=== PATIENT | male | born 1940 | race African-American/Black ===

== ENCOUNTER 2021-02-25 16:51 | Inpatient (IN) | payer OTHER, BC ==
[2021-02-25 18:29] LABS: BASO % 0.7 % (0-2.0); EOS % 0.6 % (0-4.5); HEMOGLOBIN 8.3 GM/dL (11.7-16.9); LYMPH % 27.1 % (8-40); MCH 26.7 pg (25.7-33.7); MEAN CELL VOLUME 83.5 fl (80-96); MEAN PLT VOLUME 9.5 fl (7.5-11.1); MONO % 14.7 % (3.8-10.2); NEUT % 56.9 % (42.8-82.8); PLATELET COUNT 179 K/MM3 (134-434); RBC 3.11 M/mm3 (4.00-5.60); RDW 17.3 % (11.9-15.9); WHITE BLOOD COUNT 4.7 K/mm3 (4.0-10.0)
[2021-02-25] MEDS ORDERED: CEFTRIAXONE 1,000 MG in DEXTROSE 5%-WATER - 50 ML IVPB ONE (18:33)
[2021-02-25 18:37] LABS: INR 0.97 (0.83-1.09)
[2021-02-25 18:40] LABS: ACTIVATED PTT 31.5 SECONDS (25.2-36.5)
[2021-02-25] MEDS ORDERED: CEFTRIAXONE 1 GM/50 ML BAG ONE (18:40)
[2021-02-25 18:46] LABS: CHLORIDE 118 mmol/L (98-107); SODIUM 147 mmol/L (136-145)
[2021-02-25 18:48] LABS: ALBUMIN 2.9 g/dl (3.4-5.0); ANION GAP 5 MMOL/L (8-16); BLOOD UREA NITROGEN 37.9 mg/dL (7-18); CALCIUM 8.7 mg/dL (8.5-10.1); CO2 24 mmol/L (21-32); GLUCOSE,RANDOM 170 mg/dL (74-106)
[2021-02-25 18:49] LABS: MAGNESIUM 2.2 mg/dL (1.8-2.4)
[2021-02-25 18:51] LABS: PHOSPHOROUS 4.1 mg/dL (2.5-4.9); SGOT/AST 24 U/L (15-37); SGPT/ALT 41 U/L (13-61)
[2021-02-25 18:52] LABS: CREATININE 4.3 mg/dL (0.55-1.3)
[2021-02-25 18:53] LABS: BILIRUBIN,TOTAL 0.3 mg/dL (0.2-1); TOT PROT 7.6 g/dl (6.4-8.2)
[2021-02-25 18:54] LABS: ALK PHOS 85 U/L (45-117)
[2021-02-25] MEDS ORDERED: FUROSEMIDE 40 MG/4 ML INJECTABLE VIAL IVPUSH ONE (19:13)
[2021-02-25] MEDS ORDERED: FUROSEMIDE 40 MG/4 ML INJECTABLE VIAL ONE (19:38)
[2021-02-26] MEDS ORDERED: hydrALAZINE HCL 50 MG TABLET (FP) PO SCH (06:00)
[2021-02-26] MEDS ORDERED: [UNRECOGNIZED DRUG - OTHER] SQ SCH (07:00)
[2021-02-26] MEDS ORDERED: INSULIN (LEVEMIR) 100 UNITS/ML UNITS SQ SCH (07:00)
[2021-02-26] MEDS ORDERED: INSULIN SQ SCH (07:00)
[2021-02-26] MEDS ORDERED: TAMSULOSIN HCL 0.4 MG CAP PO SCH (08:30)
[2021-02-26] MEDS ORDERED: ACETAMINOPHEN 325 MG TABLET (FP) PO PRN ×2 (10:33→21:20)
[2021-02-26] MEDS ORDERED: HEPARIN NA (PORCINE) 5,000 UNITS/ML 1ML VIAL SQ SCH (10:45)
[2021-02-26] MEDS ORDERED: INSULIN SLIDING SCALE (NOVOLOG) 1 VIAL SQ SCH (11:00)
[2021-02-26 11:18] LABS: BASO % 0.9 % (0-2.0); EOS % 0.2 % (0-4.5); LYMPH % 15.6 % (8-40); MCHC 32.1 g/dl (32.0-35.9); MEAN CELL VOLUME 84.1 fl (80-96); MEAN PLT VOLUME 8.4 fl (7.5-11.1); MONO % 9.2 % (3.8-10.2); NEUT % 74.1 % (42.8-82.8); PLATELET COUNT 186 K/MM3 (134-434); RBC 3.33 M/mm3 (4.00-5.60); RDW 17.3 % (11.9-15.9); WHITE BLOOD COUNT 5.7 K/mm3 (4.0-10.0)
[2021-02-26] MEDS ORDERED: FUROSEMIDE 40 MG/4 ML INJECTABLE VIAL IVPUSH ONE ×2 (11:19→18:50)
[2021-02-26] MEDS: ALBUTEROL SO4 2.5/IPRATROPIUM 0.5 INH SOL 3 ML VIAL.NEB. NEB SCH ×3 (11:30→20:29)
[2021-02-26 11:43] LABS: CALCIUM 8.9 mg/dL (8.5-10.1)
[2021-02-26 11:44] LABS: BLOOD UREA NITROGEN 44.8 mg/dL (7-18)
[2021-02-26 11:47] LABS: CREATININE 4.6 mg/dL (0.55-1.3)
[2021-02-26 12:00] LABS: ARTERIAL BLD GAS O2 SATURATION 98.8 mmHg (95-98); ARTERIAL BLOOD GAS BASE EXCESS -4.2 mmol/L (-2-2); ARTERIAL BLOOD GAS PO2 185.6 mmHg (80-100)
[2021-02-26 12:02] LABS: ALLENS TEST POSITIVE
[2021-02-26 12:05] LABS: ARTERIAL BLOOD GAS pH 7.142 (7.350-7.450)
[2021-02-26] MEDS: amLODIPine BESYLATE 10 MG TABLET (FP) PO SCH ×2 (12:13→13:21)
[2021-02-26] MEDS ORDERED: FUROSEMIDE 100 MG/10 ML INJECTABLE VIAL IVPB SCH (12:15)
[2021-02-26 15:05] LABS: IRON SERUM 36 ug/dL (50-175); TOTAL IRON BINDING CAPACITY 195 ug/dL (250-450)
[2021-02-26 15:17] LABS: EPI CELLS 24 /uL (0-25.1); HYALINE CASTS 6 /uL (0-3.1); URINE APPEARANCE CLEAR; URINE BACTERIA 12 /uL (0-1359); URINE BILIRUBIN NEGATIVE (NEGATIVE); URINE COLOR YELLOW; URINE GLUCOSE (UA) TRACE (NEGATIVE); URINE KETONE NEGATIVE (NEGATIVE); URINE LEUK ESTERASE NEGATIVE (NEGATIVE); URINE NITRITE NEGATIVE (NEGATIVE); URINE PROTEIN 4+ (NEGATIVE); URINE RBC 29 /uL (0-23.9); URINE UROBILINOGEN 0.2 mg/dL (0.2-1.0); URINE WBC 16 /uL (0-25.8)
[2021-02-26] MEDS ORDERED: hydrALAZINE HCL 20 MG/ML VIAL IVPUSH PRN (16:18)
[2021-02-26 16:55] LABS: ARTERIAL BLD GAS O2 SATURATION 98.7 mmHg (95-98); ARTERIAL BLOOD GAS BASE EXCESS -5.2 mmol/L (-2-2); ARTERIAL BLOOD GAS PO2 190.8 mmHg (80-100)
[2021-02-26 16:57] LABS: ALLENS TEST POSITIVE
[2021-02-26 16:58] LABS: VENT MODE S/T; VENT RATE 18
[2021-02-26] MEDS ORDERED: SUCCINYLCHOLINE CHLORIDE 200 MG/10 ML VIAL IVPUSH ONE (18:09)
[2021-02-26] MEDS ORDERED: PROPOFOL 1,000,000 MCG/100 ML VIAL IVPB SCH (18:15)
[2021-02-26] MEDS ORDERED: RAPID SEQUENCE INTUBATION KIT NR ONE (18:15)
[2021-02-26] MEDS ORDERED: FENTANYL NS IVPB 500 MCG/100 ML BAG IVPB SCH (18:45)
[2021-02-26] MEDS ORDERED: PT OWN MED DRAWER 7, Y5N ONE ×2 (19:35→21:33)
[2021-02-26] MEDS: FUROSEMIDE INJECTION 100 MG in SODIUM CHLORIDE 40 ML IVPB SCH (19:49)
[2021-02-26 20:06] LABS: ARTERIAL BLD GAS O2 SATURATION 98.5 mmHg (95-98); ARTERIAL BLOOD GAS BASE EXCESS -3.1 mmol/L (-2-2); ARTERIAL BLOOD GAS pH 7.386 (7.350-7.450)
[2021-02-26 20:07] LABS: ALLENS TEST POSITIVE; VENT RATE 22
[2021-02-26] MEDS: FENTANYL NS IVPB 500 MCG/100 ML BAG IVPB SCH (21:30)
[2021-02-26] MEDS: CHLORHEXIDINE GLUCONATE 4% CLEANSER FOR DECOLONIZATION TP SCH (21:36)
[2021-02-26] MEDS: HEPARIN NA (PORCINE) 5,000 UNITS/ML 1ML VIAL SQ SCH (21:36)
[2021-02-26] MEDS: MUPIROCIN 2% TOPICAL OINTMENT FOR DECOLONIZATION NS SCH (21:37)
[2021-02-26] MEDS: PROPOFOL 1,000,000 MCG/100 ML VIAL IVPB SCH (21:40)
[2021-02-26] MEDS ORDERED: ATORVASTATIN CA 40 MG TABLET (FP) PO SCH (22:00)
[2021-02-27] MEDS: FENTANYL NS IVPB 500 MCG/100 ML BAG IVPB SCH ×3 (00:26→21:30)
[2021-02-27] MEDS: PROPOFOL 1,000,000 MCG/100 ML VIAL IVPB SCH ×5 (01:07→21:35)
[2021-02-27] MEDS: FUROSEMIDE INJECTION 100 MG in SODIUM CHLORIDE 40 ML IVPB SCH (03:54)
[2021-02-27 06:11] LABS: ARTERIAL BLD GAS O2 SATURATION 99.2 mmHg (95-98); ARTERIAL BLOOD GAS BASE EXCESS 0.3 mmol/L (-2-2); ARTERIAL BLOOD GAS PO2 155.1 mmHg (80-100); ARTERIAL BLOOD GAS pH 7.532 (7.350-7.450)
[2021-02-27 06:22] LABS: ALLENS TEST POSITIVE
[2021-02-27 06:24] LABS: VENT MODE A/C; VENT RATE 22
[2021-02-27] MEDS ORDERED: DEXTROSE 50%-WATER - 25 GM/50 ML VIAL IVPUSH ONE (06:45)
[2021-02-27] MEDS ORDERED: DEXTROSE 50%-WATER 25 GM/50 ML DISP.SYRIN ONE (06:56)
[2021-02-27] MEDS ORDERED: INSULIN (LEVEMIR) 100 UNITS/ML UNITS SQ SCH (07:00)
[2021-02-27] MEDS ORDERED: DEXTROSE 50%-WATER 25 GM/50 ML DISP.SYRIN IVPUSH ONE (07:00)
[2021-02-27] MEDS: INSULIN SLIDING SCALE (NOVOLOG) 1 VIAL SQ SCH ×3 (07:01→17:22)
[2021-02-27 07:40] LABS: BASO % 0.5 % (0-2.0); EOS % 0.3 % (0-4.5); HEMATOCRIT 24.6 % (35.4-49); HEMOGLOBIN 8.1 GM/dL (11.7-16.9); LYMPH % 30.7 % (8-40); MCHC 32.8 g/dl (32.0-35.9); MEAN CELL VOLUME 82.4 fl (80-96); MEAN PLT VOLUME 9.5 fl (7.5-11.1); MONO % 13.5 % (3.8-10.2); PLATELET COUNT 157 K/MM3 (134-434); RBC 2.98 M/mm3 (4.00-5.60); RDW 16.8 % (11.9-15.9); WHITE BLOOD COUNT 5.5 K/mm3 (4.0-10.0)
[2021-02-27 07:54] LABS: CALCIUM 8.4 mg/dL (8.5-10.1)
[2021-02-27 07:55] LABS: ALBUMIN 2.6 g/dl (3.4-5.0); BLOOD UREA NITROGEN 52.4 mg/dL (7-18)
[2021-02-27 07:58] LABS: CREATININE 5.1 mg/dL (0.55-1.3)
[2021-02-27 07:59] LABS: BILIRUBIN,TOTAL 0.4 mg/dL (0.2-1); TOT PROT 6.5 g/dl (6.4-8.2)
[2021-02-27] MEDS: ALBUTEROL SO4 2.5/IPRATROPIUM 0.5 INH SOL 3 ML VIAL.NEB. NEB SCH ×4 (08:30→20:25)
[2021-02-27] MEDS: KCL 10 MEQ IVPB 10 MEQ/100 ML INFUS.BAG IVPB SCH ×2 (09:22→10:44)
[2021-02-27] MEDS: MUPIROCIN 2% TOPICAL OINTMENT FOR DECOLONIZATION NS SCH ×2 (09:22→22:24)
[2021-02-27] MEDS: amLODIPine BESYLATE 10 MG TABLET (FP) PO SCH (09:23)
[2021-02-27] MEDS: HEPARIN NA (PORCINE) 5,000 UNITS/ML 1ML VIAL SQ SCH ×2 (09:23→22:23)
[2021-02-27] MEDS ORDERED: DEXMEDETOMIDINE IN 0.9 % NACL 200 MCG/50 ML EACH IVPB SCH (12:00)
[2021-02-27] MEDS: DEXMEDETOMIDINE IN 0.9 % NACL 400 MCG/100 ML VIAL IVPB SCH ×3 (12:07→21:45)
[2021-02-27] MEDS ORDERED: PIPERACILLIN/TAZOB 2.25 GM 2.25 GM in DEXTROSE 5%-WATER - 50 ML IVPB SCH (12:30)
[2021-02-27] MEDS ORDERED: PIPERACILLIN/TAZOBACTAM 2.25 GM VIAL IVPB ONE ×2 (12:30→14:38)
[2021-02-27] MEDS ORDERED: DEXTROSE 5%-WATER - 50 ML IVPB ONE ×2 (12:30→14:38)
[2021-02-27] MEDS: PIPERACILLIN/TAZOB 2.25 GM 2.25 GM in DEXTROSE 5%-WATER - 50 ML IVPB SCH ×2 (12:31→17:43)
[2021-02-27 13:18] LABS: ARTERIAL BLD GAS O2 SATURATION 97.3 mmHg (95-98); ARTERIAL BLOOD GAS pH 7.409 (7.350-7.450)
[2021-02-27 13:19] LABS: ALLENS TEST POSITIVE
[2021-02-27 13:20] LABS: VENT RATE 14
[2021-02-27] MEDS ORDERED: PT OWN MED DRAWER 7, Y5N ONE (14:38)
[2021-02-27] MEDS: CHLORHEXIDINE GLUCONATE 4% CLEANSER FOR DECOLONIZATION TP SCH (22:24)
[2021-02-28] MEDS ORDERED: DEXTROSE 5%-WATER - 50 ML IVPB ONE ×3 (00:34→22:23)
[2021-02-28] MEDS ORDERED: PIPERACILLIN/TAZOBACTAM 2.25 GM VIAL IVPB ONE ×3 (00:34→22:23)
[2021-02-28] MEDS: PIPERACILLIN/TAZOB 2.25 GM 2.25 GM in DEXTROSE 5%-WATER - 50 ML IVPB SCH ×3 (00:35→21:00)
[2021-02-28] MEDS: DEXMEDETOMIDINE IN 0.9 % NACL 400 MCG/100 ML VIAL IVPB SCH ×2 (04:00→21:00)
[2021-02-28] MEDS: PROPOFOL 1,000,000 MCG/100 ML VIAL IVPB SCH (05:43)
[2021-02-28] MEDS: INSULIN SLIDING SCALE (NOVOLOG) 1 VIAL SQ SCH ×3 (06:45→16:18)
[2021-02-28] MEDS: ALBUTEROL SO4 2.5/IPRATROPIUM 0.5 INH SOL 3 ML VIAL.NEB. NEB SCH ×4 (07:30→19:49)
[2021-02-28 07:54] LABS: HEMATOCRIT 30.7 % (35.4-49); HEMOGLOBIN 10.1 GM/dL (11.7-16.9); MCHC 33.1 g/dl (32.0-35.9); MEAN CELL VOLUME 81.5 fl (80-96); MEAN PLT VOLUME 9.5 fl (7.5-11.1); PLATELET COUNT 170 K/MM3 (134-434); RBC 3.76 M/mm3 (4.00-5.60); RDW 17.4 % (11.9-15.9); WHITE BLOOD COUNT 5.9 K/mm3 (4.0-10.0)
[2021-02-28 07:57] LABS: BLOOD UREA NITROGEN 54.1 mg/dL (7-18); CALCIUM 8.4 mg/dL (8.5-10.1); MAGNESIUM 2.2 mg/dL (1.8-2.4)
[2021-02-28 08:00] LABS: CREATININE 5.1 mg/dL (0.55-1.3)
[2021-02-28 08:01] LABS: PHOSPHOROUS 4.3 mg/dL (2.5-4.9)
[2021-02-28] MEDS: HEPARIN NA (PORCINE) 5,000 UNITS/ML 1ML VIAL SQ SCH ×2 (10:34→22:00)
[2021-02-28] MEDS: amLODIPine BESYLATE 10 MG TABLET (FP) PO SCH (10:34)
[2021-02-28] MEDS: MUPIROCIN 2% TOPICAL OINTMENT FOR DECOLONIZATION NS SCH (10:35)
[2021-03-01] MEDS: FENTANYL NS IVPB 500 MCG/100 ML BAG IVPB SCH ×2 (00:08→21:29)
[2021-03-01] MEDS: CHLORHEXIDINE GLUCONATE 4% CLEANSER FOR DECOLONIZATION TP SCH ×2 (00:08→21:29)
[2021-03-01] MEDS: PROPOFOL 1,000,000 MCG/100 ML VIAL IVPB SCH ×2 (00:08→21:29)
[2021-03-01] MEDS: MUPIROCIN 2% TOPICAL OINTMENT FOR DECOLONIZATION NS SCH ×3 (00:08→21:30)
[2021-03-01] MEDS ORDERED: DEXTROSE 5%-WATER - 50 ML IVPB ONE ×3 (00:47→17:46)
[2021-03-01] MEDS ORDERED: PIPERACILLIN/TAZOBACTAM 2.25 GM VIAL IVPB ONE ×2 (00:47→08:36)
[2021-03-01] MEDS: PIPERACILLIN/TAZOB 2.25 GM 2.25 GM in DEXTROSE 5%-WATER - 50 ML IVPB SCH ×2 (02:54→09:28)
[2021-03-01 06:57] LABS: ARTERIAL BLD GAS O2 SATURATION 98.3 mmHg (95-98); ARTERIAL BLOOD GAS BASE EXCESS -4.3 mmol/L (-2-2); ARTERIAL BLOOD GAS PO2 125.5 mmHg (80-100); ARTERIAL BLOOD GAS pH 7.331 (7.350-7.450)
[2021-03-01 06:59] LABS: ALLENS TEST POSITIVE
[2021-03-01 07:00] LABS: VENT MODE PS
[2021-03-01] MEDS: INSULIN SLIDING SCALE (NOVOLOG) 1 VIAL SQ SCH ×3 (07:37→16:30)
[2021-03-01] MEDS: ALBUTEROL SO4 2.5/IPRATROPIUM 0.5 INH SOL 3 ML VIAL.NEB. NEB SCH ×4 (07:45→20:00)
[2021-03-01 07:46] LABS: HEMOGLOBIN 9.8 GM/dL (11.7-16.9); MCHC 32.8 g/dl (32.0-35.9); MEAN CELL VOLUME 82.5 fl (80-96); MEAN PLT VOLUME 9.6 fl (7.5-11.1); PLATELET COUNT 165 K/MM3 (134-434); RBC 3.63 M/mm3 (4.00-5.60); RDW 17.4 % (11.9-15.9); WHITE BLOOD COUNT 8.2 K/mm3 (4.0-10.0)
[2021-03-01 07:58] LABS: BLOOD UREA NITROGEN 63.1 mg/dL (7-18); CALCIUM 7.8 mg/dL (8.5-10.1)
[2021-03-01 07:59] LABS: MAGNESIUM 2.3 mg/dL (1.8-2.4)
[2021-03-01 08:02] LABS: CREATININE 5.4 mg/dL (0.55-1.3); PHOSPHOROUS 6.1 mg/dL (2.5-4.9)
[2021-03-01] MEDS: HEPARIN NA (PORCINE) 5,000 UNITS/ML 1ML VIAL SQ SCH ×2 (09:29→21:28)
[2021-03-01] MEDS: amLODIPine BESYLATE 10 MG TABLET (FP) PO SCH (09:29)
[2021-03-01] MEDS: PANTOPRAZOLE SODIUM 40 MG VIAL IVPUSH SCH (09:29)
[2021-03-01] MEDS ORDERED: FUROSEMIDE 40 MG/4 ML INJECTABLE VIAL IVPB SCH (11:45)
[2021-03-01] MEDS: DEXMEDETOMIDINE IN 0.9 % NACL 400 MCG/100 ML VIAL IVPB SCH (12:02)
[2021-03-01] MEDS ORDERED: PIPERACILLIN/TAZOB 2.25 GM 2.25 GM in DEXTROSE 5%-WATER - 50 ML IVPB SCH (13:00)
[2021-03-01] MEDS ORDERED: PIPERACILLIN/TAZOBACTAM 3.375 GM VIAL IVPB ONE (17:46)
[2021-03-01] MEDS: PIPERACILLIN/TAZOB 3.375 GM 3.375 GM in DEXTROSE 5%-WATER - 50 ML IVPB SCH (18:31)
[2021-03-02] MEDS ORDERED: DEXTROSE 5%-WATER - 50 ML IVPB ONE ×2 (01:49→10:03)
[2021-03-02] MEDS ORDERED: PIPERACILLIN/TAZOBACTAM 3.375 GM VIAL IVPB ONE ×2 (01:49→10:03)
[2021-03-02] MEDS: PIPERACILLIN/TAZOB 3.375 GM 3.375 GM in DEXTROSE 5%-WATER - 50 ML IVPB SCH ×2 (01:50→10:09)
[2021-03-02] MEDS: INSULIN SLIDING SCALE (NOVOLOG) 1 VIAL SQ SCH ×3 (06:15→17:16)
[2021-03-02 07:28] LABS: HEMATOCRIT 28.3 % (35.4-49); HEMOGLOBIN 9.3 GM/dL (11.7-16.9); MCH 26.9 pg (25.7-33.7); MCHC 32.7 g/dl (32.0-35.9); MEAN CELL VOLUME 82.2 fl (80-96); MEAN PLT VOLUME 9.9 fl (7.5-11.1); PLATELET COUNT 180 K/MM3 (134-434); RBC 3.45 M/mm3 (4.00-5.60); WHITE BLOOD COUNT 7.7 K/mm3 (4.0-10.0)
[2021-03-02 07:43] LABS: BLOOD UREA NITROGEN 66.5 mg/dL (7-18)
[2021-03-02 07:44] LABS: CALCIUM 8.2 mg/dL (8.5-10.1)
[2021-03-02 07:45] LABS: MAGNESIUM 2.5 mg/dL (1.8-2.4)
[2021-03-02 07:46] LABS: CREATININE 5.4 mg/dL (0.55-1.3)
[2021-03-02 07:47] LABS: PHOSPHOROUS 5.6 mg/dL (2.5-4.9)
[2021-03-02] MEDS: ALBUTEROL SO4 2.5/IPRATROPIUM 0.5 INH SOL 3 ML VIAL.NEB. NEB SCH ×4 (07:50→20:50)
[2021-03-02] MEDS ORDERED: *DONT ORDER IVPB ONE ×2 (08:45→08:59)
[2021-03-02] MEDS ORDERED: KCL 10 MEQ IVPB 10 MEQ/100 ML INFUS.BAG IVPB SCH (09:00)
[2021-03-02] MEDS ORDERED: DEXTROSE 5%-WATER - 500 ML IV SCH ×2 (09:15→22:24)
[2021-03-02] MEDS ORDERED: IRON POLYSACCHARIDES 150 MG CAPSULE PO SCH (10:00)
[2021-03-02] MEDS ORDERED: POLYETHYLENE GLYCOL 3350 119 GM BTL PO SCH (10:00)
[2021-03-02] MEDS ORDERED: PT OWN MED DRAWER 7, Y5N ONE (10:03)
[2021-03-02] MEDS: amLODIPine BESYLATE 10 MG TABLET (FP) PO SCH (10:09)
[2021-03-02] MEDS: PANTOPRAZOLE SODIUM 40 MG VIAL IVPUSH SCH (10:09)
[2021-03-02] MEDS: MUPIROCIN 2% TOPICAL OINTMENT FOR DECOLONIZATION NS SCH ×2 (10:12→21:10)
[2021-03-02] MEDS: HEPARIN NA (PORCINE) 5,000 UNITS/ML 1ML VIAL SQ SCH ×2 (10:22→21:09)
[2021-03-02] MEDS: metoPROLOL SUCCINATE 25 MG TAB.SR.24H (FP) PO SCH ×2 (13:51→21:10)
[2021-03-02 16:08] LABS: ATYPICAL pANCA <1:20 titer (Neg:<1:20); C-ANCA <1:20 titer (Neg:<1:20)
[2021-03-02] MEDS: FUROSEMIDE 100 MG/10 ML INJECTABLE VIAL IVPB SCH (17:18)
[2021-03-02] MEDS: CHLORHEXIDINE GLUCONATE 4% CLEANSER FOR DECOLONIZATION TP SCH (21:13)
[2021-03-03] MEDS: INSULIN SLIDING SCALE (NOVOLOG) 1 VIAL SQ SCH ×3 (06:27→16:49)
[2021-03-03] MEDS: ALBUTEROL SO4 2.5/IPRATROPIUM 0.5 INH SOL 3 ML VIAL.NEB. NEB SCH ×4 (07:45→20:30)
[2021-03-03] MEDS: IRON POLYSACCHARIDES 150 MG CAPSULE PO SCH (09:47)
[2021-03-03] MEDS: amLODIPine BESYLATE 10 MG TABLET (FP) PO SCH (09:48)
[2021-03-03] MEDS: metoPROLOL SUCCINATE 25 MG TAB.SR.24H (FP) PO SCH ×2 (09:48→21:10)
[2021-03-03] MEDS: HEPARIN NA (PORCINE) 5,000 UNITS/ML 1ML VIAL SQ SCH (09:49)
[2021-03-03] MEDS: FUROSEMIDE 100 MG/10 ML INJECTABLE VIAL IVPB SCH (09:49)
[2021-03-03] MEDS: PANTOPRAZOLE SODIUM 40 MG VIAL IVPUSH SCH (09:49)
[2021-03-03] MEDS: POLYETHYLENE GLYCOL 3350 119 GM BTL PO SCH (09:55)
[2021-03-03] MEDS ORDERED: MUPIROCIN 2% TOPICAL OINTMENT FOR DECOLONIZATION NS SCH (10:00)
[2021-03-03 12:00] LABS: BASO % 0.6 % (0-2.0); EOS % 3.8 % (0-4.5); HEMOGLOBIN 8.5 GM/dL (11.7-16.9); LYMPH % 17.8 % (8-40); MCH 26.7 pg (25.7-33.7); MCHC 32.6 g/dl (32.0-35.9); MEAN CELL VOLUME 82.1 fl (80-96); MEAN PLT VOLUME 10.1 fl (7.5-11.1); MONO % 13.2 % (3.8-10.2); NEUT % 64.6 % (42.8-82.8); PLATELET COUNT 184 K/MM3 (134-434); RBC 3.17 M/mm3 (4.00-5.60); WHITE BLOOD COUNT 5.4 K/mm3 (4.0-10.0)
[2021-03-03 12:24] LABS: CALCIUM 8.3 mg/dL (8.5-10.1)
[2021-03-03 12:25] LABS: ALBUMIN 2.4 g/dl (3.4-5.0); BLOOD UREA NITROGEN 60.2 mg/dL (7-18)
[2021-03-03 12:28] LABS: CREATININE 5.7 mg/dL (0.55-1.3)
[2021-03-03 12:29] LABS: BILIRUBIN,TOTAL 0.5 mg/dL (0.2-1); TOT PROT 6.7 g/dl (6.4-8.2)
[2021-03-03] MEDS: DEXTROSE 5%-WATER - 500 ML IV SCH (14:38)
[2021-03-03] MEDS ORDERED: CHLORHEXIDINE GLUCONATE 4% CLEANSER FOR DECOLONIZATION TP SCH (22:00)
[2021-03-04] MEDS: INSULIN SLIDING SCALE (NOVOLOG) 1 VIAL SQ SCH ×3 (06:16→16:42)
[2021-03-04 07:18] LABS: BASO % 0.5 % (0-2.0); EOS % 3.4 % (0-4.5); HEMOGLOBIN 9.1 GM/dL (11.7-16.9); MCHC 32.4 g/dl (32.0-35.9); MEAN CELL VOLUME 83.2 fl (80-96); MEAN PLT VOLUME 9.7 fl (7.5-11.1); MONO % 16.7 % (3.8-10.2); NEUT % 53.4 % (42.8-82.8); PLATELET COUNT 170 K/MM3 (134-434); RBC 3.36 M/mm3 (4.00-5.60); RDW 16.5 % (11.9-15.9); WHITE BLOOD COUNT 5.8 K/mm3 (4.0-10.0)
[2021-03-04 07:37] LABS: CALCIUM 8.2 mg/dL (8.5-10.1)
[2021-03-04 07:38] LABS: ALBUMIN 2.3 g/dl (3.4-5.0); BLOOD UREA NITROGEN 55.2 mg/dL (7-18); MAGNESIUM 2.3 mg/dL (1.8-2.4)
[2021-03-04 07:40] LABS: CREATININE 5.4 mg/dL (0.55-1.3)
[2021-03-04 07:41] LABS: BILIRUBIN,TOTAL 0.5 mg/dL (0.2-1); PHOSPHOROUS 4.4 mg/dL (2.5-4.9)
[2021-03-04 07:44] LABS: TOT PROT 6.8 g/dl (6.4-8.2)
[2021-03-04] MEDS: ALBUTEROL SO4 2.5/IPRATROPIUM 0.5 INH SOL 3 ML VIAL.NEB. NEB SCH ×4 (07:45→20:50)
[2021-03-04] MEDS: FUROSEMIDE 100 MG/10 ML INJECTABLE VIAL IVPB SCH (10:16)
[2021-03-04] MEDS: amLODIPine BESYLATE 10 MG TABLET (FP) PO SCH (10:16)
[2021-03-04] MEDS: metoPROLOL SUCCINATE 25 MG TAB.SR.24H (FP) PO SCH ×2 (10:16→21:12)
[2021-03-04] MEDS: IRON POLYSACCHARIDES 150 MG CAPSULE PO SCH (10:16)
[2021-03-04] MEDS: PANTOPRAZOLE SODIUM 40 MG VIAL IVPUSH SCH (10:16)
[2021-03-04 10:38] LABS: ANISOCYTOSIS 1+; MACROCYTOSIS 0; OVALOCYTE 1+; PLATELET ESTIMATE NORMAL; TARGET CELLS 1+; TEAR DROP CELLS 1+
[2021-03-04] MEDS: POLYETHYLENE GLYCOL 3350 119 GM BTL PO SCH (11:08)
[2021-03-04] MEDS: DEXTROSE 5%-WATER - 500 ML IV SCH ×2 (14:27→17:22)
[2021-03-05] MEDS: DEXTROSE 5%-WATER - 500 ML IV SCH ×2 (03:23→14:07)
[2021-03-05] MEDS: INSULIN SLIDING SCALE (NOVOLOG) 1 VIAL SQ SCH ×3 (06:10→16:25)
[2021-03-05 07:20] LABS: HEMATOCRIT 26.3 % (35.4-49); HEMOGLOBIN 8.5 GM/dL (11.7-16.9); MCH 26.9 pg (25.7-33.7); MCHC 32.3 g/dl (32.0-35.9); MEAN CELL VOLUME 83.3 fl (80-96); MEAN PLT VOLUME 9.5 fl (7.5-11.1); PLATELET COUNT 171 K/MM3 (134-434); RBC 3.16 M/mm3 (4.00-5.60); RDW 16.5 % (11.9-15.9); WHITE BLOOD COUNT 5.2 K/mm3 (4.0-10.0)
[2021-03-05] MEDS: ALBUTEROL SO4 2.5/IPRATROPIUM 0.5 INH SOL 3 ML VIAL.NEB. NEB SCH ×4 (07:37→20:15)
[2021-03-05 07:51] LABS: ALBUMIN 2.2 g/dl (3.4-5.0); CALCIUM 8.1 mg/dL (8.5-10.1)
[2021-03-05 07:52] LABS: BLOOD UREA NITROGEN 54.1 mg/dL (7-18)
[2021-03-05 07:55] LABS: CREATININE 5.3 mg/dL (0.55-1.3); PHOSPHOROUS 4.8 mg/dL (2.5-4.9)
[2021-03-05 07:56] LABS: BILIRUBIN,TOTAL 0.4 mg/dL (0.2-1); TOT PROT 6.4 g/dl (6.4-8.2)
[2021-03-05] MEDS: FUROSEMIDE 100 MG/10 ML INJECTABLE VIAL IVPB SCH (10:17)
[2021-03-05] MEDS: metoPROLOL SUCCINATE 25 MG TAB.SR.24H (FP) PO SCH ×2 (10:18→21:09)
[2021-03-05] MEDS: amLODIPine BESYLATE 10 MG TABLET (FP) PO SCH (10:18)
[2021-03-05] MEDS: IRON POLYSACCHARIDES 150 MG CAPSULE PO SCH (10:18)
[2021-03-05] MEDS: PANTOPRAZOLE SODIUM 40 MG VIAL IVPUSH SCH (10:19)
[2021-03-05] MEDS: POLYETHYLENE GLYCOL 3350 119 GM BTL PO SCH (11:49)
[2021-03-05] MEDS: HEPARIN NA (PORCINE) 5,000 UNITS/ML 1ML VIAL SQ SCH (21:08)
[2021-03-06] MEDS: INSULIN SLIDING SCALE (NOVOLOG) 1 VIAL SQ SCH ×3 (06:02→17:21)
[2021-03-06] MEDS: ALBUTEROL SO4 2.5/IPRATROPIUM 0.5 INH SOL 3 ML VIAL.NEB. NEB SCH ×4 (07:25→19:30)
[2021-03-06 08:02] LABS: CALCIUM 8.3 mg/dL (8.5-10.1)
[2021-03-06 08:03] LABS: ALBUMIN 2.4 g/dl (3.4-5.0); BLOOD UREA NITROGEN 53.1 mg/dL (7-18); CREATININE 5.3 mg/dL (0.55-1.3)
[2021-03-06 08:05] LABS: BILIRUBIN,TOTAL 0.3 mg/dL (0.2-1)
[2021-03-06] MEDS: FUROSEMIDE 100 MG/10 ML INJECTABLE VIAL IVPB SCH (09:34)
[2021-03-06] MEDS: metoPROLOL SUCCINATE 25 MG TAB.SR.24H (FP) PO SCH ×2 (09:34→21:17)
[2021-03-06] MEDS: HEPARIN NA (PORCINE) 5,000 UNITS/ML 1ML VIAL SQ SCH ×2 (09:34→21:17)
[2021-03-06] MEDS: amLODIPine BESYLATE 10 MG TABLET (FP) PO SCH (09:35)
[2021-03-06] MEDS: POLYETHYLENE GLYCOL 3350 119 GM BTL PO SCH (09:35)
[2021-03-06] MEDS: PANTOPRAZOLE SODIUM 40 MG VIAL IVPUSH SCH (09:35)
[2021-03-06] MEDS: IRON POLYSACCHARIDES 150 MG CAPSULE PO SCH (09:36)
[2021-03-06] MEDS ORDERED: MAG HYDROX/AL HYDROX/SIMETH 30 ML UNIT-DOSE CUP PO ONE (17:05)
[2021-03-06] MEDS: ACETAMINOPHEN 325 MG TABLET (FP) PO PRN (17:21)
[2021-03-07] MEDS: INSULIN SLIDING SCALE (NOVOLOG) 1 VIAL SQ SCH ×3 (06:17→16:11)
[2021-03-07] MEDS: ALBUTEROL SO4 2.5/IPRATROPIUM 0.5 INH SOL 3 ML VIAL.NEB. NEB SCH ×4 (07:30→20:03)
[2021-03-07 09:06] LABS: ALBUMIN 2.6 g/dl (3.4-5.0); CALCIUM 8.4 mg/dL (8.5-10.1)
[2021-03-07 09:07] LABS: BLOOD UREA NITROGEN 53.1 mg/dL (7-18)
[2021-03-07 09:09] LABS: CREATININE 5.1 mg/dL (0.55-1.3)
[2021-03-07 09:10] LABS: BILIRUBIN,TOTAL 0.4 mg/dL (0.2-1); PHOSPHOROUS 2.9 mg/dL (2.5-4.9)
[2021-03-07 09:11] LABS: TOT PROT 7.2 g/dl (6.4-8.2)
[2021-03-07] MEDS: HEPARIN NA (PORCINE) 5,000 UNITS/ML 1ML VIAL SQ SCH ×2 (10:41→21:04)
[2021-03-07] MEDS: metoPROLOL SUCCINATE 25 MG TAB.SR.24H (FP) PO SCH ×2 (10:41→21:04)
[2021-03-07] MEDS: amLODIPine BESYLATE 10 MG TABLET (FP) PO SCH (10:41)
[2021-03-07] MEDS: IRON POLYSACCHARIDES 150 MG CAPSULE PO SCH (10:41)
[2021-03-07] MEDS: POLYETHYLENE GLYCOL 3350 119 GM BTL PO SCH (10:41)
[2021-03-07] MEDS: FUROSEMIDE 100 MG/10 ML INJECTABLE VIAL IVPB SCH (10:41)
[2021-03-07] MEDS: PANTOPRAZOLE SODIUM 40 MG VIAL IVPUSH SCH (10:42)
[2021-03-07] MEDS ORDERED: FUROSEMIDE 40 MG/4 ML INJECTABLE VIAL IVPB SCH (13:56)
[2021-03-07] MEDS ORDERED: DEXTROSE 5%-WATER - 1,000 ML IV SCH (14:00)
[2021-03-07] MEDS ORDERED: HALOPERIDOL 2 MG TABLET PO ONE (23:24)
[2021-03-07] MEDS ORDERED: HALOPERIDOL 1 MG TABLET PO ONE (23:45)
[2021-03-08] MEDS: INSULIN SLIDING SCALE (NOVOLOG) 1 VIAL SQ SCH ×3 (06:06→16:42)
[2021-03-08 07:15] LABS: ALBUMIN 2.9 g/dl (3.4-5.0); BLOOD UREA NITROGEN 53.2 mg/dL (7-18); CALCIUM 9.1 mg/dL (8.5-10.1)
[2021-03-08 07:18] LABS: CREATININE 5.1 mg/dL (0.55-1.3)
[2021-03-08 07:20] LABS: BILIRUBIN,TOTAL 0.5 mg/dL (0.2-1)
[2021-03-08] MEDS: IRON POLYSACCHARIDES 150 MG CAPSULE PO SCH (09:48)
[2021-03-08] MEDS: metoPROLOL SUCCINATE 25 MG TAB.SR.24H (FP) PO SCH ×2 (09:48→21:03)
[2021-03-08] MEDS: POLYETHYLENE GLYCOL 3350 119 GM BTL PO SCH (09:48)
[2021-03-08] MEDS: HEPARIN NA (PORCINE) 5,000 UNITS/ML 1ML VIAL SQ SCH ×2 (09:48→21:03)
[2021-03-08] MEDS: amLODIPine BESYLATE 10 MG TABLET (FP) PO SCH (09:48)
[2021-03-08] MEDS: PANTOPRAZOLE SODIUM 40 MG VIAL IVPUSH SCH (09:48)
[2021-03-08] MEDS: ACETAMINOPHEN 325 MG TABLET (FP) PO PRN (16:43)
[2021-03-09] MEDS: ACETAMINOPHEN 325 MG TABLET (FP) PO PRN (03:19)
[2021-03-09] MEDS: INSULIN SLIDING SCALE (NOVOLOG) 1 VIAL SQ SCH ×3 (06:06→18:52)
[2021-03-09 07:06] LABS: HEMATOCRIT 26.1 % (35.4-49); HEMOGLOBIN 8.6 GM/dL (11.7-16.9); MCH 27.1 pg (25.7-33.7); MCHC 33.1 g/dl (32.0-35.9); MEAN CELL VOLUME 81.8 fl (80-96); MEAN PLT VOLUME 9.5 fl (7.5-11.1); PLATELET COUNT 246 K/MM3 (134-434); RBC 3.19 M/mm3 (4.00-5.60); RDW 16.5 % (11.9-15.9); WHITE BLOOD COUNT 7.2 K/mm3 (4.0-10.0)
[2021-03-09 07:22] LABS: CALCIUM 8.7 mg/dL (8.5-10.1)
[2021-03-09 07:23] LABS: BLOOD UREA NITROGEN 54.6 mg/dL (7-18); MAGNESIUM 2.3 mg/dL (1.8-2.4)
[2021-03-09 07:26] LABS: CREATININE 5.3 mg/dL (0.55-1.3); PHOSPHOROUS 3.5 mg/dL (2.5-4.9)
[2021-03-09] MEDS: PANTOPRAZOLE 40 MG TABLET PO SCH (09:42)
[2021-03-09] MEDS: amLODIPine BESYLATE 10 MG TABLET (FP) PO SCH (09:42)
[2021-03-09] MEDS: HEPARIN NA (PORCINE) 5,000 UNITS/ML 1ML VIAL SQ SCH ×2 (09:43→21:45)
[2021-03-09] MEDS: metoPROLOL SUCCINATE 25 MG TAB.SR.24H (FP) PO SCH ×2 (09:43→21:46)
[2021-03-09] MEDS: IRON POLYSACCHARIDES 150 MG CAPSULE PO SCH (09:43)
[2021-03-09] MEDS: POLYETHYLENE GLYCOL 3350 119 GM BTL PO SCH (09:48)
[2021-03-09 15:19] VITALS: BMI 22.3
[2021-03-09] MEDS: DIVALPROEX SODIUM 125 MG SPRINKLE CAPS PO SCH (21:45)
[2021-03-10] MEDS: INSULIN SLIDING SCALE (NOVOLOG) 1 VIAL SQ SCH ×3 (06:09→18:24)
[2021-03-10 08:02] LABS: CALCIUM 9.4 mg/dL (8.5-10.1)
[2021-03-10 08:03] LABS: BLOOD UREA NITROGEN 55.4 mg/dL (7-18)
[2021-03-10 08:09] LABS: CREATININE 5.4 mg/dL (0.55-1.3)
[2021-03-10] MEDS ORDERED: PT OWN MED DRAWER 7, Y5N ONE ×3 (08:59→22:55)
[2021-03-10] MEDS ORDERED: INSULIN (LEVEMIR) 100 UNITS/ML UNITS SQ ONE (09:06)
[2021-03-10] MEDS ORDERED: INSULIN (NOVOLOG) ASPART 100 UNITS/ML 10ML VIAL ONE (09:07)
[2021-03-10] MEDS: metoPROLOL SUCCINATE 25 MG TAB.SR.24H (FP) PO SCH ×2 (10:09→22:56)
[2021-03-10] MEDS: HEPARIN NA (PORCINE) 5,000 UNITS/ML 1ML VIAL SQ SCH ×2 (10:09→22:56)
[2021-03-10] MEDS: POLYETHYLENE GLYCOL 3350 119 GM BTL PO SCH (10:09)
[2021-03-10] MEDS: DIVALPROEX SODIUM 125 MG SPRINKLE CAPS PO SCH ×2 (10:09→22:56)
[2021-03-10] MEDS: amLODIPine BESYLATE 10 MG TABLET (FP) PO SCH (10:09)
[2021-03-10] MEDS: PANTOPRAZOLE 40 MG TABLET PO SCH (10:09)
[2021-03-10] MEDS: IRON POLYSACCHARIDES 150 MG CAPSULE PO SCH (10:09)
[2021-03-10] MEDS ORDERED: EPOETIN ALFA-EPBX 20,000 UNIT/ML VIAL SQ ONE (11:43)
[2021-03-10] MEDS ORDERED: IRON SUCROSE INJECTION 100 MG in SODIUM CHLORIDE 95 ML IVPB ONE (12:00)
[2021-03-11 00:06] LABS: EPI CELLS 3 /uL (0-25.1); HYALINE CASTS 1 /uL (0-3.1); PH,URINE 6.5 (5.0-8.0); URINE APPEARANCE TURBID; URINE BACTERIA 508 /uL (0-1359); URINE BILIRUBIN NEGATIVE (NEGATIVE); URINE COLOR YELLOW; URINE GLUCOSE (UA) TRACE (NEGATIVE); URINE KETONE NEGATIVE (NEGATIVE); URINE LEUK ESTERASE 3+ (NEGATIVE); URINE NITRITE NEGATIVE (NEGATIVE); URINE PROTEIN 3+ (NEGATIVE); URINE RBC 20 /uL (0-23.9); URINE UROBILINOGEN 0.2 mg/dL (0.2-1.0); URINE WBC 2847 /uL (0-25.8)
[2021-03-11] MEDS: INSULIN SLIDING SCALE (NOVOLOG) 1 VIAL SQ SCH ×3 (07:33→16:58)
[2021-03-11] MEDS ORDERED: PT OWN MED DRAWER 7, Y5N ONE (09:31)
[2021-03-11] MEDS: PANTOPRAZOLE 40 MG TABLET PO SCH (09:36)
[2021-03-11] MEDS: POLYETHYLENE GLYCOL 3350 119 GM BTL PO SCH (09:37)
[2021-03-11] MEDS: amLODIPine BESYLATE 10 MG TABLET (FP) PO SCH (09:37)
[2021-03-11] MEDS: HEPARIN NA (PORCINE) 5,000 UNITS/ML 1ML VIAL SQ SCH (09:37)
[2021-03-11] MEDS: IRON POLYSACCHARIDES 150 MG CAPSULE PO SCH (09:37)
[2021-03-11] MEDS: DIVALPROEX SODIUM 125 MG SPRINKLE CAPS PO SCH (09:37)
[2021-03-11] MEDS: metoPROLOL SUCCINATE 25 MG TAB.SR.24H (FP) PO SCH (09:37)
[2021-03-11 18:25] VITALS: BP 134/50; PULSE 77; TEMP 97.9
[2021-03-12] MEDS ORDERED: TAMSULOSIN HCL 0.4 MG CAP PO SCH (08:30)
== END 2021-03-11 20:52 | disposition home health service (06) | DRG 208 ==
LOC: JER 16:51 → JERBED 17:31 → J4W 02-26 01:52 → JICU 02-26 19:13 → J4W 03-02 21:38
PROVIDERS: ADMIT Internal Medicine; ATTEND Family Medicine
PROC: 5A1945Z Respiratory Ventilation, 24-96 Consecutive Hours (ICD-10-PCS; principal; 2021-02-26)
PROC: 0BH17EZ Insertion of Endotracheal Airway into Trachea, Via Natural or Artificial Opening (ICD-10-PCS; 2021-02-26)
PROC: 0TB13ZX Excision of Left Kidney, Percutaneous Approach, Diagnostic (ICD-10-PCS; 2021-03-04)
DX: J96.02 Acute respiratory failure with hypercapnia (principal); I50.33 Acute on chronic diastolic (congestive) heart failure; G93.41 Metabolic encephalopathy; J18.9 Pneumonia, unspecified organism; I13.0 Hypertensive heart and chronic kidney disease with heart failure and stage 1 through stage 4 chronic kidney disease, or unspecified chronic kidney disease; N17.9 Acute kidney failure, unspecified; E87.1 Hypo-osmolality and hyponatremia; E87.0 Hyperosmolality and hypernatremia; N18.30 Chronic kidney disease, stage 3 unspecified; E11.9 Type 2 diabetes mellitus without complications; D47.2 Monoclonal gammopathy; I25.10 Atherosclerotic heart disease of native coronary artery without angina pectoris; Z95.1 Presence of aortocoronary bypass graft; E87.70 Fluid overload, unspecified; D64.9 Anemia, unspecified; N40.0 Benign prostatic hyperplasia without lower urinary tract symptoms; E78.5 Hyperlipidemia, unspecified
CPT/HCPCS: 31500; 36415; 36600; 50200; 71045-TC-FY; 71250-TC; 76775-TC; 76856-TC; 80048; 80053; 80074; 81003; 82272; 82570; 82607; 82728; 82803; 82962; 83516; 83520; 83540; 83550; 83735; 83880; 84100; 84155; 84156; 84165; 84300; 84439; 84443; 84484; 84540; 85025; 85027; 85610; 85730; 86038; 86160; 86225; 86256; 86780; 87040; 87086; 87186; 87205; 88300-TC; 88329; 93005; 93010; 93306-TC; 94002; 94010; 94640; 94660; 97116-GP; 97161-GP; 99285-25; C9803; J1644; J1756; U0003; U0005

== ENCOUNTER 2021-04-09 13:06 | Inpatient (IN) | payer OTHER, BC ==
[2021-04-09] MEDS ORDERED: CALCIUM GLUCONATE 10% - 1,000 MG/10 ML VIAL IVPB ONE (14:14)
[2021-04-09] MEDS ORDERED: CALCIUM GLUCONATE 10% - 1,000 MG/10 ML VIAL ONE (14:50)
[2021-04-09 15:36] LABS: BASO % 0.5 % (0-2.0); HEMATOCRIT 28.5 % (35.4-49); HEMOGLOBIN 9.3 GM/dL (11.7-16.9); LYMPH % 16.3 % (8-40); MCH 26.1 pg (25.7-33.7); MCHC 32.6 g/dl (32.0-35.9); MEAN PLT VOLUME 8.6 fl (7.5-11.1); MONO % 4.8 % (3.8-10.2); NEUT % 78.4 % (42.8-82.8); PLATELET COUNT 247 10^3/uL (134-434); RBC 3.56 M/mm3 (4.00-5.60); RDW 17.4 % (11.9-15.9); WHITE BLOOD COUNT 7.7 K/mm3 (4.0-10.0)
[2021-04-09 15:41] LABS: INR 0.92 (0.83-1.09); PROTHROMBIN TIME (PATIENT) 11.2 SEC (9.7-13.0)
[2021-04-09 15:44] LABS: ACTIVATED PTT 29.1 SECONDS (25.2-36.5); CHLORIDE 113 mmol/L (98-107); SODIUM 143 mmol/L (136-145)
[2021-04-09 15:45] LABS: CALCIUM 9.4 mg/dL (8.5-10.1)
[2021-04-09 15:46] LABS: ALBUMIN 2.9 g/dl (3.4-5.0); ANION GAP 7 MMOL/L (8-16); BLOOD UREA NITROGEN 76.6 mg/dL (7-18); CO2 23 mmol/L (21-32); GLUCOSE,RANDOM 63 mg/dL (74-106)
[2021-04-09 15:49] LABS: CREATININE 4.3 mg/dL (0.55-1.3); SGOT/AST 21 U/L (15-37); SGPT/ALT 31 U/L (13-61)
[2021-04-09 15:51] LABS: BILIRUBIN,TOTAL 0.2 mg/dL (0.2-1); TOT PROT 7.8 g/dl (6.4-8.2)
[2021-04-09 15:52] LABS: ALK PHOS 64 U/L (45-117)
[2021-04-09] MEDS ORDERED: PIPERACILLIN/TAZOB 4.5 GM 4.5 GM in DEXTROSE 5%-WATER - 100 ML IVPB ONE (16:35)
[2021-04-09] MEDS ORDERED: VANCOMYCIN 1,000 MG in DEXTROSE 5%-WATER - 250 ML IVPB ONE (16:35)
[2021-04-09] MEDS ORDERED: PIPERACILLIN/TAZOB 4.5 GM 4.5 GM/100 ML BAG IVPB ONE (17:00)
[2021-04-09] MEDS ORDERED: VANCOMYCIN 1 GRAM (PRE-DOCKED) 1,000 MG/250 ML BAG IVPB ONE (17:00)
[2021-04-09] MEDS ORDERED: DEXTROSE 50%-WATER 25 GM/50 ML DISP.SYRIN ONE (17:07)
[2021-04-09 17:31] LABS: EPI CELLS 1 /uL (0-25.1); HYALINE CASTS 0 /uL (0-3.1); PH,URINE 5.5 (5.0-8.0); URINE APPEARANCE CLEAR; URINE BACTERIA 587 /uL (0-1359); URINE BILIRUBIN NEGATIVE (NEGATIVE); URINE COLOR YELLOW; URINE GLUCOSE (UA) NEGATIVE (NEGATIVE); URINE KETONE NEGATIVE (NEGATIVE); URINE LEUK ESTERASE 2+ (NEGATIVE); URINE NITRITE NEGATIVE (NEGATIVE); URINE PROTEIN 3+ (NEGATIVE); URINE RBC 6 /uL (0-23.9); URINE UROBILINOGEN 0.2 mg/dL (0.2-1.0); URINE WBC 630 /uL (0-25.8)
[2021-04-09] MEDS ORDERED: DEXTROSE 50%-WATER - 25 GM/50 ML VIAL IVPUSH ONE (19:19)
[2021-04-09] MEDS ORDERED: LORazepam 2 MG/ML SDV VIAL IVPUSH ONE (20:43)
[2021-04-09] MEDS ORDERED: DEXTROSE 5%-WATER - 1,000 ML IV SCH (22:15)
[2021-04-09] MEDS ORDERED: DEXTROSE 5%-NORMAL SALINE 1,000 ML IV SCH (23:45)
[2021-04-10] MEDS ORDERED: DEXTROSE 50%-WATER - 25 GM/50 ML VIAL IVPUSH ONE ×2 (00:57→06:10)
[2021-04-10] MEDS ORDERED: DEXTROSE 50%-WATER - 25 GM/50 ML VIAL ONE ×2 (00:57→06:29)
[2021-04-10] MEDS: DEXTROSE 5%-WATER - 1,000 ML IV SCH ×2 (01:35→21:42)
[2021-04-10 02:12] VITALS: BMI 21.3
[2021-04-10] MEDS ORDERED: PIPERACILLIN/TAZOB 2.25 GM 2.25 GM in DEXTROSE 5%-WATER - 50 ML IVPB SCH (09:00)
[2021-04-10] MEDS ORDERED: PIPERACILLIN/TAZOBACTAM 2.25 GM VIAL IVPB ONE ×2 (09:29→16:42)
[2021-04-10] MEDS ORDERED: DEXTROSE 5%-WATER - 50 ML IVPB ONE ×2 (09:29→16:42)
[2021-04-10] MEDS: DIVALPROEX SODIUM 125 MG SPRINKLE CAPS PO SCH ×2 (09:41→21:32)
[2021-04-10] MEDS ORDERED: ACETAMINOPHEN 325 MG TABLET (FP) PO PRN (10:28)
[2021-04-10] MEDS: INSULIN SLIDING SCALE (NOVOLOG) 1 VIAL SQ SCH ×3 (12:29→21:33)
[2021-04-10 13:24] LABS: BASO % 0.8 % (0-2.0); EOS % 5.2 % (0-4.5); HEMATOCRIT 28.5 % (35.4-49); HEMOGLOBIN 9.1 GM/dL (11.7-16.9); LYMPH % 30.3 % (8-40); MCH 26.2 pg (25.7-33.7); MEAN CELL VOLUME 81.7 fl (80-96); MEAN PLT VOLUME 9.1 fl (7.5-11.1); MONO % 11.3 % (3.8-10.2); NEUT % 52.4 % (42.8-82.8); PLATELET COUNT 243 10^3/uL (134-434); RBC 3.49 M/mm3 (4.00-5.60); RDW 17.9 % (11.9-15.9); WHITE BLOOD COUNT 6.8 K/mm3 (4.0-10.0)
[2021-04-10 13:38] LABS: ALBUMIN 2.8 g/dl (3.4-5.0); BLOOD UREA NITROGEN 66.2 mg/dL (7-18); CALCIUM 9.2 mg/dL (8.5-10.1)
[2021-04-10 13:42] LABS: CREATININE 4.3 mg/dL (0.55-1.3)
[2021-04-10 13:43] LABS: BILIRUBIN,TOTAL 0.2 mg/dL (0.2-1); TOT PROT 7.4 g/dl (6.4-8.2)
[2021-04-10] MEDS: PIPERACILLIN/TAZOB 2.25 GM 2.25 GM in DEXTROSE 5%-WATER - 50 ML IVPB SCH (17:55)
[2021-04-10] MEDS: metoPROLOL SUCCINATE 25 MG TAB.SR.24H (FP) PO SCH (21:32)
[2021-04-10] MEDS: hydrALAZINE HCL 25 MG TABLET (FP) PO SCH (21:33)
[2021-04-10] MEDS ORDERED: DIVALPROEX SODIUM 125 MG TABLET E.C. PO SCH (22:00)
[2021-04-11] MEDS ORDERED: DEXTROSE 5%-WATER - 50 ML IVPB ONE ×2 (00:48→09:51)
[2021-04-11] MEDS ORDERED: PIPERACILLIN/TAZOBACTAM 2.25 GM VIAL IVPB ONE ×2 (00:48→09:51)
[2021-04-11] MEDS: DEXTROSE 5%-WATER - 1,000 ML IV SCH ×2 (02:06→17:24)
[2021-04-11] MEDS: PIPERACILLIN/TAZOB 2.25 GM 2.25 GM in DEXTROSE 5%-WATER - 50 ML IVPB SCH ×2 (02:08→10:04)
[2021-04-11] MEDS: INSULIN SLIDING SCALE (NOVOLOG) 1 VIAL SQ SCH ×4 (06:16→21:57)
[2021-04-11 07:49] LABS: HEMATOCRIT 27.2 % (35.4-49); HEMOGLOBIN 8.8 GM/dL (11.7-16.9); MCH 26.4 pg (25.7-33.7); MCHC 32.6 g/dl (32.0-35.9); MEAN PLT VOLUME 9.1 fl (7.5-11.1); PLATELET COUNT 227 10^3/uL (134-434); RBC 3.36 M/mm3 (4.00-5.60); RDW 17.2 % (11.9-15.9); WHITE BLOOD COUNT 7.5 K/mm3 (4.0-10.0)
[2021-04-11 08:12] LABS: CALCIUM 8.8 mg/dL (8.5-10.1)
[2021-04-11 08:13] LABS: ALBUMIN 2.6 g/dl (3.4-5.0); BLOOD UREA NITROGEN 64.2 mg/dL (7-18)
[2021-04-11 08:16] LABS: CREATININE 4.5 mg/dL (0.55-1.3)
[2021-04-11 08:17] LABS: BILIRUBIN,TOTAL 0.3 mg/dL (0.2-1)
[2021-04-11] MEDS: metoPROLOL SUCCINATE 25 MG TAB.SR.24H (FP) PO SCH ×2 (10:03→21:56)
[2021-04-11] MEDS: IRON POLYSACCHARIDES 150 MG CAPSULE PO SCH (10:03)
[2021-04-11] MEDS: TAMSULOSIN HCL 0.4 MG CAP PO SCH (10:03)
[2021-04-11] MEDS: PANTOPRAZOLE 40 MG TABLET PO SCH (10:04)
[2021-04-11] MEDS: DIVALPROEX SODIUM 125 MG SPRINKLE CAPS PO SCH ×2 (10:04→21:56)
[2021-04-11] MEDS: ASPIRIN COATED 81 MG TABLET.EC PO SCH (10:04)
[2021-04-11] MEDS: hydrALAZINE HCL 25 MG TABLET (FP) PO SCH ×2 (10:04→21:59)
[2021-04-11] MEDS: SODIUM ZIRCONIUM CYCLOSILICATE (LOKELMA) 5 GM PACKET PO SCH (10:04)
[2021-04-11] MEDS: AMOXICILLIN 500 MG CAPSULE (FP) PO SCH (21:56)
[2021-04-12] MEDS: DEXTROSE 5%-WATER - 1,000 ML IV SCH (06:16)
[2021-04-12] MEDS: INSULIN SLIDING SCALE (NOVOLOG) 1 VIAL SQ SCH ×4 (06:16→21:25)
[2021-04-12 08:12] LABS: ALBUMIN 2.7 g/dl (3.4-5.0); BLOOD UREA NITROGEN 60.8 mg/dL (7-18)
[2021-04-12 08:15] LABS: CREATININE 4.8 mg/dL (0.55-1.3)
[2021-04-12 08:17] LABS: BILIRUBIN,TOTAL 0.3 mg/dL (0.2-1); TOT PROT 7.6 g/dl (6.4-8.2)
[2021-04-12] MEDS ORDERED: PT OWN MED DRAWER 7, Y5N ONE ×3 (08:38→21:20)
[2021-04-12] MEDS: ASPIRIN COATED 81 MG TABLET.EC PO SCH (09:16)
[2021-04-12] MEDS: hydrALAZINE HCL 25 MG TABLET (FP) PO SCH ×2 (09:16→21:25)
[2021-04-12] MEDS: IRON POLYSACCHARIDES 150 MG CAPSULE PO SCH (09:16)
[2021-04-12] MEDS: DIVALPROEX SODIUM 125 MG SPRINKLE CAPS PO SCH ×2 (09:16→21:25)
[2021-04-12] MEDS: PANTOPRAZOLE 40 MG TABLET PO SCH (09:16)
[2021-04-12] MEDS: SODIUM ZIRCONIUM CYCLOSILICATE (LOKELMA) 5 GM PACKET PO SCH (09:16)
[2021-04-12] MEDS: metoPROLOL SUCCINATE 25 MG TAB.SR.24H (FP) PO SCH ×2 (09:16→21:25)
[2021-04-12] MEDS: TAMSULOSIN HCL 0.4 MG CAP PO SCH (09:16)
[2021-04-12] MEDS: AMOXICILLIN 500 MG CAPSULE (FP) PO SCH ×2 (09:20→21:25)
[2021-04-13] MEDS: INSULIN SLIDING SCALE (NOVOLOG) 1 VIAL SQ SCH ×4 (07:19→21:52)
[2021-04-13] MEDS: DEXTROSE 5%-WATER - 1,000 ML IV SCH (09:28)
[2021-04-13] MEDS: TAMSULOSIN HCL 0.4 MG CAP PO SCH (09:49)
[2021-04-13] MEDS: DIVALPROEX SODIUM 125 MG SPRINKLE CAPS PO SCH ×2 (09:49→21:59)
[2021-04-13] MEDS: PANTOPRAZOLE 40 MG TABLET PO SCH (09:49)
[2021-04-13] MEDS: metoPROLOL SUCCINATE 25 MG TAB.SR.24H (FP) PO SCH ×2 (09:49→21:59)
[2021-04-13] MEDS: hydrALAZINE HCL 25 MG TABLET (FP) PO SCH ×2 (09:49→21:59)
[2021-04-13] MEDS: IRON POLYSACCHARIDES 150 MG CAPSULE PO SCH (09:49)
[2021-04-13] MEDS: ASPIRIN COATED 81 MG TABLET.EC PO SCH (09:50)
[2021-04-13] MEDS: SODIUM ZIRCONIUM CYCLOSILICATE (LOKELMA) 5 GM PACKET PO SCH (09:50)
[2021-04-13] MEDS ORDERED: PT OWN MED DRAWER 7, Y5N ONE ×2 (10:01→21:38)
[2021-04-13] MEDS: AMOXICILLIN 500 MG CAPSULE (FP) PO SCH ×2 (10:05→21:58)
[2021-04-14] MEDS: INSULIN SLIDING SCALE (NOVOLOG) 1 VIAL SQ SCH ×2 (06:08→11:19)
[2021-04-14] MEDS ORDERED: SODIUM CHLORIDE 250 ML IV STA (07:49)
[2021-04-14] MEDS ORDERED: SODIUM CHLORIDE 1,000 ML IV SCH (08:00)
[2021-04-14] MEDS: TAMSULOSIN HCL 0.4 MG CAP PO SCH (08:08)
[2021-04-14 09:25] LABS: BLOOD UREA NITROGEN 70.3 mg/dL (7-18); CALCIUM 8.5 mg/dL (8.5-10.1); MAGNESIUM 2.2 mg/dL (1.8-2.4)
[2021-04-14 09:29] LABS: CREATININE 4.3 mg/dL (0.55-1.3); PHOSPHOROUS 3.4 mg/dL (2.5-4.9)
[2021-04-14] MEDS ORDERED: SODIUM BICARBONATE 650 MG TABLET PO SCH (10:45)
[2021-04-14] MEDS: IRON POLYSACCHARIDES 150 MG CAPSULE PO SCH (11:13)
[2021-04-14] MEDS: ASPIRIN COATED 81 MG TABLET.EC PO SCH (11:13)
[2021-04-14] MEDS: metoPROLOL SUCCINATE 25 MG TAB.SR.24H (FP) PO SCH (11:14)
[2021-04-14] MEDS: hydrALAZINE HCL 25 MG TABLET (FP) PO SCH (11:14)
[2021-04-14] MEDS: PANTOPRAZOLE 40 MG TABLET PO SCH (11:14)
[2021-04-14] MEDS: SODIUM ZIRCONIUM CYCLOSILICATE (LOKELMA) 5 GM PACKET PO SCH (11:14)
[2021-04-14] MEDS: DIVALPROEX SODIUM 125 MG SPRINKLE CAPS PO SCH (11:14)
[2021-04-14 15:39] VITALS: BP 155/65; PULSE 62; TEMP 98.9
== END 2021-04-14 16:15 | DRG 637 ==
LOC: JER 13:06 → JERBED 16:36 → J5S 22:56
PROVIDERS: ADMIT Internal Medicine; ATTEND Family Medicine
DX: E11.649 Type 2 diabetes mellitus with hypoglycemia without coma (principal); G93.41 Metabolic encephalopathy; E87.2 Acidosis; I13.2 Hypertensive heart and chronic kidney disease with heart failure and with stage 5 chronic kidney disease, or end stage renal disease; N39.0 Urinary tract infection, site not specified; I25.10 Atherosclerotic heart disease of native coronary artery without angina pectoris; E78.5 Hyperlipidemia, unspecified; F31.9 Bipolar disorder, unspecified; E87.5 Hyperkalemia; D64.9 Anemia, unspecified; N17.9 Acute kidney failure, unspecified; E11.22 Type 2 diabetes mellitus with diabetic chronic kidney disease; N18.5 Chronic kidney disease, stage 5; I50.9 Heart failure, unspecified; B95.2 Enterococcus as the cause of diseases classified elsewhere
CPT/HCPCS: 36415; 71045-TC-FY; 80048; 80053; 80164; 81003; 82533; 82962; 83605; 83735; 84100; 84155; 84165; 84443; 84484; 85025; 85027; 85610; 85730; 87040; 87086; 87186; 93005; 93010; 97116-GP; 97161-GP; 99285-25; C9803; U0003; U0005

== ENCOUNTER 2021-06-11 06:16 | Emergency (ER) | payer OTHER, BC ==
[2021-06-11] MEDS ORDERED: AMIODARONE HCL 150 MG/3 ML VIAL ONE (06:33)
[2021-06-11] MEDS ORDERED: CALCIUM CHLORIDE 1 GM/10 ML *DISP.SYRIN ONE (06:34)
[2021-06-11] MEDS ORDERED: EPINEPHrine 1:10,000 (P-F SYR) 1 MG/10 ML DISP.SYRIN ONE (06:34)
[2021-06-11 07:16] VITALS: BP 00/00; PULSE 0; BMI 21.6
== END 2021-06-11 07:45 | disposition expired ==
LOC: JER 06:16
DX: I46.9 Cardiac arrest, cause unspecified (principal)
CPT/HCPCS: 82962; 99283-25